=== PATIENT | male | born 1950 | race Caucasian/White ===

== ENCOUNTER 2017-11-20 21:26 | Emergency (ER) | payer MEDICARE, MEDICAID ==
[~2017-11-20] VITALS: Ht 170.2 cm; Wt 81.6 kg
[~2017-11-20 21:26] MED LIST: AUGMENTIN 500-1 EACH PO; BACTRIM DS TAB1 EACH PO; BACTROBAN CREAM30 G1 TOP; DIFLUCAN150 MG PO; DIOVAN HCT 1601 EACH PO; DOXYCYCLINE 10100 MG PO; FLOMAX0.4 MG PO; IBUPROFEN 800800 M1 PO; MEDROL4 MG PO; MEDROLDOSEPACK PO; NORCO 5-325 TA1 EAC1 PO; NORCO 5-325 TA1 EACH PO; PREDNISONE 10 M10 MG PO; SAW PALMETTO450 MG PO; TERBINAFINE15 GM TP
[2017-11-20 21:47] LABS: URINE BILIRUBIN NEGATIVE (Negative); URINE BLOOD TRACE (Negative); URINE CLARITY CLEAR; URINE COLOR YELLOW; URINE GLUCOSE-RANDOM NEGATIVE (Negative); URINE KETONES NEGATIVE (Negative); URINE LEUKOCYTES-REFLEX NEGATIVE (Negative); URINE NITRITE-REFLEX NEGATIVE (Negative); URINE PROTEIN NEGATIVE (Negative); URINE SPECIFIC GRAVITY 1.025 (1.005-1.030); URINE UROBILINOGEN 0.2 E.U./dl (0.2-1.0)
[2017-11-20 21:50] LABS: ABSOLUTE BASOPHILS 0.1 thou/uL (0.0-0.2); ABSOLUTE EOSINOPHILS 0.4 thou/uL (0.0-0.7); ABSOLUTE LYMPHOCYTES 3.3 thou/uL (0.8-5.3); ABSOLUTE MONOCYTES 0.5 thou/uL (0.0-1.2); ABSOLUTE NEUTROPHILS 5.1 thou/uL (1.6-8.1); BASOPHILS 1.4 %; EOSINOPHILS 4.4 %; HEMATOCRIT 47.3 % (42.0-52.0); LYMPHOCYTES 34.5 %; MCHC 33.8 g/dL (28.0-37.0); MCV 88.9 fL (80.0-100.0); MONOCYTES 5.7 %; MPV 7.6 fl. (7.2-11.1); NUCLEATED RBCS 0 /100WBC; PLATELET COUNT* 211 thou/uL (150-400); RBC 5.32 mil/uL (4.50-6.00); RDW-CV 13.7 % (10.5-14.5); WBC 9.5 thou/uL (4.0-11.0)
[2017-11-20 21:58] LABS: ANION GAP 9 mmol/L (7-16); BUN 34 mg/dL (7-18); CALCIUM 9.3 mg/dL (8.5-10.1); CHLORIDE 102 mmol/L (98-107); CO2 29 mmol/L (21-32); CREATININE 1.2 mg/dL (0.6-1.3); GLUCOSE 111 mg/dL (70-99); POTASSIUM 3.7 mmol/L (3.5-5.1); SODIUM 140 mmol/L (136-145)
[2017-11-20 22:05] LABS: ALBUMIN 3.8 g/dL (3.4-5.0); ALKALINE PHOSPHATASE 93 U/L (46-116); LIPASE 135 U/L (73-393); SGOT 13 U/L (15-37); SGPT 22 U/L (30-65); TOTAL BILIRUBIN 0.3 mg/dL (<0.1-1.0); TOTAL PROTEIN 8.1 g/dL (6.4-8.2); TROPONIN-I LEVEL <0.06 ng/mL (<0.06)
[2017-11-20 23:14] VITALS: BP 116/66
--- NOTE | 2017-11-21 11:19 | EKG ---
[place] [address] ELECTROCARDIOGRAM REPORT Name: JD MCGINNIS [id number] Admission: 11/20/17 Attend Phys: Discharge: 11/20/17 Date of : 54 Report #: [id number] THIS REPORT FOR: //name// [facility] ED Test Date: 2017-11-20 Test Time: 21:41:21 Pat Name: JD MCGINNIS Department: Room: Gender: M [employer] Intern: ALYSIA : 1950 Requested By: Tom Mims Order Number: [id number] MD: Alec Madsen Measurements Intervals [place] Rate: 87 P: 23 MN: 192 QRS: -75 QRSD: 90 T: 57 QT: 361 QTc: 435 Interpretive Statements Sinus rhythm Left anterior fascicular block Abnormal R-wave progression, late transition No previous ECG available for comparison Electronically Signed On 11-21-2017 11:18:45 CDT by Alec Madsen [email or web address] <ELECTRONICALLY SIGNED> By: Alec Madsen MD, [facility] 11/21/17 1118 [id number] 40 Alec Madsen MD, FACC /EPI
== END 2017-11-20 23:15 | disposition home or self-care (01) ==
LOC: M.ERS 21:26
PROVIDERS: Family Medicine
DX: R10.11 Right upper quadrant pain (principal); I10 Essential (primary) hypertension; F41.9 Anxiety disorder, unspecified

== ENCOUNTER 2019-01-12 21:05 | Emergency (ER) | payer MEDICARE, OTHER, MEDICAID ==
[~2019-01-12] VITALS: Ht 167.6 cm; Wt 87.1 kg
[2019-01-12] MEDS ORDERED: PREDNISONE 20 M20 M1 PO (21:57)
[2019-01-12] MEDS ORDERED: TRIAMCINOLONE A15 G1 TOP (21:57)
[2019-01-12 22:43] VITALS: BP 127/79
== END 2019-01-12 22:43 | disposition home or self-care (01) ==
LOC: M.ERS 21:05
DX: L25.9 Unspecified contact dermatitis, unspecified cause (principal); I10 Essential (primary) hypertension; F41.9 Anxiety disorder, unspecified; F17.210 Nicotine dependence, cigarettes, uncomplicated; Z88.2 Allergy status to sulfonamides; Z88.1 Allergy status to other antibiotic agents; Z88.8 Allergy status to other drugs, medicaments and biological substances

== ENCOUNTER 2019-09-05 01:39 | Emergency (ER) | payer MEDICARE, MEDICAID ==
[~2019-09-05] VITALS: Ht 167.6 cm; Wt 81.7 kg
[~2019-09-05 01:39] MED LIST changes: +PREDNISONE 20 M20 M1 PO; +TRIAMCINOLONE A15 G1 TOP
[2019-09-05] MEDS ORDERED: BLOOD PRESSURE MED (01:50)
[2019-09-05] MEDS ORDERED: CIPROFLOXIN HC2.5 M1 OPHTHALMIC (02:34)
[2019-09-05 02:41] VITALS: BP 155/93
== END 2019-09-05 02:41 | disposition home or self-care (01) ==
LOC: M.ERS 01:39
DX: S05.02XA Injury of conjunctiva and corneal abrasion without foreign body, left eye, initial encounter (principal); I10 Essential (primary) hypertension; Z88.2 Allergy status to sulfonamides; Z88.1 Allergy status to other antibiotic agents; Z88.8 Allergy status to other drugs, medicaments and biological substances; X58.XXXA Exposure to other specified factors, initial encounter; Y93.89 Activity, other specified; Y92.89 Other specified places as the place of occurrence of the external cause; Y99.8 Other external cause status

== ENCOUNTER → 2019-12-04 | Outpatient (CLI) | payer MEDICARE, MEDICAID ==
[~2019-12-04] MED LIST changes: +BLOOD PRESSURE MED; +CIPROFLOXIN HC2.5 M1 OPHTHALMIC
== END ==
LOC: M.ULTRA 12:32
DX: I10 Essential (primary) hypertension (principal)